=== PATIENT | female | born 1980 | race Caucasian/White ===

== ENCOUNTER 2022-08-24 15:07 | Outpatient (CLI) | payer BC, SELFPAY ==
--- NOTE | ~2022-08-24 | MM_ITS ---
EXAMINATION: MM screening leonides BI w inés HISTORY: Screening TECHNIQUE: Craniocaudal and mediolateral oblique 3-D tomosynthesis images were obtained and synthetic 2-D images were generated. CAD analysis was submitted and interpreted. COMPARISON: No prior mammogram is available for comparison at this institution. BREAST PARENCHYMAL COMPOSITION: There are scattered areas of fibroglandular density. FINDINGS: There is no evidence of suspicious mass, calcification, or architectural distortion to sugg est malignancy in either breast. There has been no suspicious interval change. IMPRESSION: 1. No mammographic evidence of malignancy. 2. Recommend routine screening mammography in one year. 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
== END 2022-08-24 15:08 | disposition home or self-care (01) ==
LOC: ANHIMG 15:10
PROVIDERS: PCP Nurse Practitioner Adult Health; Visit Provider Obstetrics & Gynecology Gynecology
DX: Z12.31 Encounter for screening mammogram for malignant neoplasm of breast (principal)
CPT/HCPCS: 77063; 77067

== ENCOUNTER 2024-09-10 08:23 | Outpatient (CLI) | payer BC, SELFPAY ==
[2024-09-30 18:03] VITALS: BMI 38.2
--- NOTE | 2024-09-30 18:03 | P.SLEEP_ITS ---
Sleep Study - Home Unattended Date of Study: 09/10/24 Ordering Provider: Jimena Osei, LARRY Interpreting Provider: Ling Kam, DO Home Sleep Study Type: Watch PAT Height: 1.63 m Weight: 101.151 kg Body Mass Index: 38.2 Neck Circumference (inches): 18 [place]: 7 Reason for Sleep Study Snoring, daytime hypersomnia Sleep History The patient is a 44-year-old female that had a sleep study ordered for evalu ation of sleep apnea. The patient admits to snoring loudly, excessive daytime sleepiness, breathing interruptions while asleep and trouble maintaining sleep. The patient denies choking or gasping. She does have trouble breathing on her back. She denies morning headaches. She does have a dry or sore mouth/ throat in the morning. She denies nocturnal heartburn. She denies nocturia. She denies having trouble falling asleep. She does have difficulty returning to sleep she wakes up throughout the night. She denies hypnotic or sedative use. She does feel anxious about sleep. He does feel tired or sleepy during the day. She does feel tired in the morning. He does have a hours to fall asleep during the day. She does feel drowsy while driving. She denies sleep paralysis, cataplexy and hypnagogic / hypnopompic hallucinations. She does clench or grind her teeth. She denies kicking or jerking her legs excessively. She denies having a restless feeling in her legs. She does to bed at 10:30 p.m. on work days and at 11:00 p.m. on her days off. She takes 30 minutes to fall asleep. She typically gets 7 hours of sleep per night. Her sleep is not at all restorative on her days off. She denies taking any point naps. She denies dream enactment behavior. She denies sleep walking. She consumes 3-4 cups of caffeinated beverage per day. She denies tobacco and alcohol use. She denies exercising on a regular basis. Sleep Procedure The sleep study was completed using WatchPAT a technically adequate device with seven channels: peripheral arterial tone, actigraphy, body position, snore, respiratory movement, pulse oximetry, sleep staging, and heart rate. Prior to using the device, the patient received verbal and written instructions for its application and was provided with the help desk phone number for additional telephonic instruction with 24-hour availability of qualified personnel to answer questions. The study was scored using CMS guidelines. Sleep Architecture The total recording time is 8 hrs, 30 min. The total sleep time is 7 hrs, 44 min. Sleep latency is 23 minutes. REM latency is 36 minutes. The patient had 5 episodes of waking. Sleep architecture shows 21.8% deep sleep, 42.8% light sleep, and (as % Total Sleep Time) showed NREM (Light 42.8%; Deep 21.8%), and a 35.4% stage REM. The patient spent 57.4% of total sleep time in the supine position. Sleep efficiency was 90.98. Respiratory Analysis The overall AHI (pAHI 3%:) is 5.3. The central AHI is 0.1. The AHI was 1.7 in NREM and 11.8 in REM sleep. The AHI was 5.7 in Supine and 5.1 in Non-supine sleep. Percent of Suresh Ashraf respirations is 0.0. Oximetry Data The oxygen desaturation index (DAMIEN 4%:) is 2.5. The mean saturation is 94%, and the lowest saturation is 88%. Time spent with saturation < 88% is 0.3 minutes. Snoring Profile Snoring average intensity is 41 dB. The patient snored above 45 decibels for 29.4 minutes, 6.3% of sleep time. Cardiac Profile The average pulse rate is 62 beats per minutes. The lowest pulse rate is 41 bpm. The highest pulse rate reported is 104 bpm. Suspected Afib total duration is 0:00:40, (h:m:sec). The longest Afibevent duration is 0:00:40. A suspected arrhythmia flagged in the sleep report does not necessarily imply an arrhythmia condition is present, but rather suggests that further investigation should be considered. A-Fib events < 60 seconds may be artifact. Premature beats occur 0.1 per minute. Assessment and Plan Assessment and Plan (1) TRUPTI (obstructive sleep apnea): Code(s): G47.33 - Obstructive sleep apnea (adult) (pediatric) Status: Acute Assessment and Plan: The patient had an overall AHI of 5.3 with desaturation down to 88%. This is consistent with mild sleep apnea. Due to the patient's sleep maintenance insomnia, the patient qualifies for treatment. I recommend that the patient be prescribed Resmed AutoPAP 5-15 cm H2O, CPAP mask/filters/tubing and heated humidity. This should be used with all episodes of sleep.? Compliance should be reviewed within 31-90 days of starting therapy for usage greater than 4 hours per night greater than 70% of the nights. The patient should be asked about symptoms such as?excessive daytime sleepiness, quality of sleep, decreased nocturia, increased?mental functioning such as memory, mood, and concentration. Data The data obtained during this sleep study is adequate for interpretation. Certification This sleep study has been reviewed by a board certified sleep medicine anurag garcia.
== END 2024-09-11 15:45 | disposition home or self-care (01) ==
PROVIDERS: PCP Physician Assistant; Visit Provider Physician Assistant
DX: G47.30 Sleep apnea, unspecified (principal); G47.33 Obstructive sleep apnea (adult) (pediatric)
CPT/HCPCS: 95800